=== PATIENT | female | born 1940 | race Caucasian/White ===

== ENCOUNTER 2018-11-25 20:35 | Observation (INO) ==
[2018-11-25] MEDS ORDERED: Acetaminophen 325 MG TABLET PO ONE (21:29)
[2018-11-25] MEDS ORDERED: Aspirin 325 MG TABLET PO ONE (21:29)
[2018-11-25 21:32] LABS: Basophils % 0.3 %; Eosinophils # 0.6 K/mcL (0.0-0.6); Eosinophils % 6.9 %; Hematocrit 38.4 % (35.3-44.9); Hemoglobin 12.4 g/dL (11.5-15.4); Immature Granulocytes % 0.2 % (0-4); Lymphocytes # 2.7 K/mcL (0.6-4.6); Lymphocytes % 31.1 %; Mean Corpuscular HGB Conc 32.3 g/dL (31.6-35.5); Mean Corpuscular Volume 89.9 fL (83.0-100.0); Mean Platelet Volume 10.3 fL (9.4-12.4); Monocytes # 0.9 K/mcL (0.0-1.3); Monocytes % 10.2 %; Neutrophils # 4.4 K/mcL (1.6-8.9); Platelet Count 405 K/mcL (140-400); Red Blood Count 4.27 M/mcL (3.82-4.97); Red Cell Distribution Width 12.8 % (11.5-14.5); Segmented Neutrophils % 51.3 %; White Blood Count 8.6 K/mcL (4.3-11.1)
[2018-11-25 21:54] LABS: BUN/Creatinine Ratio 23 (6-26); Blood Urea Nitrogen 23 mg/dL (8-23); Calcium 9.8 mg/dL (8.6-10.3); Carbon Dioxide 31 mEq/L (23-29); Chloride 101 mEq/L (98-107); Glucose 135 mg/dL (70-105); Osmolality,Calculated 300 (280-300); Potassium 3.2 mEq/L (3.5-5.1); Sodium 142 mEq/L (136-145); Troponin I < 0.03 ng/mL (< 0.04); eGFR For African Americans > 60 (> 60); eGFR For Non-African Americans 53 (> 60)
--- NOTE | 2018-11-25 21:56 | Emergency Department Note ---
Disposition Clinical Impression: Chest pain Qualifiers: Chest pain type: unspecified Qualified Code(s): R07.9 - Chest pain, unspecified Disposition: Admitted As Inpatient Referrals: Catarina Dan MD [Primary Care Provider] - Forms: ED Satisfaction Letter Time of Disposition: 22:30 Chest Pain HPI - General Chief Complaint: ED Chest Pain Stated Complaint: CP Time Seen by Provider: 11/25/18 20:55 Source: patient Mode of arrival: ambulatory Limitations: no limitations Vital Signs Reviewed: Yes Nursing Notes Reviewed: Yes - History of Present Illness HPI Narrative: 78F with PMHx of HTN presents emergency department with a chief complaint of left-sided chest pain. Patient states that she began having sharp intermittent chest pains right below her left breast that have been slowly worsening today. Patient has never had any heart problems before but recently changed her hypertension medications as she may be developing "kidney failure and heart failure" per her primary care doctor. She states that it is causing her to catch her breath but she does not feel short of breath with this. Of note other past medical history is a swollen right lower extremity that she has already had an ultrasound and blood tests that showed no blood clot in her leg and she will be having further imaging of the leg done. She denies recent fevers, headache, cough, abdominal pain, nausea and vomiting, diarrhea. The pain has not been very severe for very long but she states that as a gets worse it is now a 7 out of 10 when it comes. The pain only lasts for a few seconds and then goes away. It does not radiate anywhere. Severity scale (1-10): 10 - Related Data Allergies Allergy/AdvReac Type Severity Reaction Status Date / Time Sulfa (Sulfonamide Allergy Rash Verified 08/21/18 13:24 Antibiotics) potassium AdvReac Vomiting Verified 08/21/18 13:24 All systems ED: reviewed and negative except as stated. Review of Systems: As Per HPI Constitutional: Denies: fever, weakness Cardiovascular: Reports: chest pain. Denies: palpitations, dyspnea on exertion, edema Respiratory: Denies: cough, dyspnea, wheezes Gastrointestinal: Denies: abdominal pain, nausea, vomiting Genitourinary: Denies: dysuria, hematuria Musculoskeletal: Denies: back pain, neck pain Integumentary: Denies: rash Endocrine: Denies: fatigue Chest Pain PMH - Past Medical History Medical history: Reports: hypertension Surgical history: Reports: other, hysterectomy, appendectomy Psychiatric history: Reports: no psych history CHIEF FUNDRAISING OFFICER history: Reports: no CHIEF FUNDRAISING OFFICER history - Social History Smoking Status: Never smoker Alcohol use: Reports: none Drug use: Reports: none Physical Exam - General Limitations: no limitations General appearance: alert, in no apparent distress - Head Head exam: atraumatic, normocephalic - Eye Eye exam: Present: normal appearance, PERRL, EOMI - ENT ENT exam: normal exam - Neck Neck exam: Present: normal inspection. Absent: tenderness - Chest Chest inspection: Present: tenderness - Respiratory Respiratory exam: Present: normal lung sounds bilaterally. Absent: wheezes - Cardiovascular Cardiovascular exam: Present: regular rate, normal rhythm - Abdominal Exam Abdominal exam: Present: soft, Non-Tender. Absent: distention, guarding, rebo und, rigidity - Extremities Exam Extremities exam: Present: tenderness, calf tenderness (RLE swelling). Absent: pedal edema - Neurological Exam Neurological exam: Present: alert, oriented X3 - Psychiatric Psychiatric exam: Present: normal affect, normal mood - Skin Skin exam: Present: warm, dry, intact Course Vital Signs Temperature 98.5 F 11/25/18 20:50 Pulse Rate 78 11/25/18 20:50 Respiratory Rate 20 11/25/18 20:50 Blood Pressure 184/93 11/25/18 20:50 O2 Sat by Pulse Oximetry 99 11/25/18 20:50 Temperature 98.5 F 11/25/18 20:50 Pulse Rate 82 11/25/18 22:00 Respiratory Rate 18 11/25/18 22:00 Blood Pressure 184/90 11/25/18 22:00 O2 Sat by Pulse Oximetry 97 11/25/18 22:00 Oxygen Delivery Oxygen Delivery Room Air Chest Pain - MDM Narrative Medical decision making narrative: Patient presents with pinpoint, very atypical chest pain for ACS, with no significant risk factors. Heart score is 5 prior to troponin. We will do an ACS rule out via EKG, lab work, chest x-ray and treat the patient's pain with aspirin and Tylenol she takes Tylenol for pain at home. Since patient has had negative outpatient tests for DVT, is not hypoxic, tachycardic, and does not seem like a reliable history for pulmonary embolus therefore we will not obtain further testing for PE at this time. 5 - Pts EKG, CXR and labwork are wnl. She is still experiencing chest pain. As she has never had a significant cardiac workup we will admit to hospitalist for chest pain rule out. 0 - pt has been accepted by the hospitalist at this time. - Medical Records Medical records reviewed: Yes I reviewed the patient's medical records. - Lab Data Lab results reviewed: Yes I reviewed the patient's lab results. Result diagrams: 11/25/18 21:05 11/25/18 21:05 Lab Results 11/25/18 11/25/18 Range/Units 21:05 21:05 WBC 8.6 (4.3-11.1) K/mcL RBC 4.27 (3.82-4.97) M/mcL Hgb 12.4 (11.5-15.4) g/dL Hct 38.4 (35.3-44.9) % MCV 89.9 (83.0-100.0) fL MCH 29.0 (28.0-33.3) pg MCHC 32.3 (31.6-35.5) g/dL RDW 12.8 (11.5-14.5) % Plt Count 405 H (140-400) K/mcL MPV 10.3 (9.4-12.4) fL Immature Gran % 0.2 (0-4) % Seg Neutrophils % 51.3 % Lymphocytes % 31.1 % Monocytes % 10.2 % Eosinophils % 6.9 % Basophils % 0.3 % Neutrophils # 4.4 (1.6-8.9) K/mcL Lymphocytes # 2.7 (0.6-4.6) K/mcL Monocytes # 0.9 (0.0-1.3) K/mcL Eosinophils # 0.6 (0.0-0.6) K/mcL Basophils # 0.0 (0.0-0.2) K/mcL Sodium 142 (136-145) mEq/L Potassium 3.2 L (3.5-5.1) mEq/L Chloride 101 (98-107) mEq/L Carbon Dioxide 31 H (23-29) mEq/L BUN 23 (8-23) mg/dL Creatinine 1.01 (0.60-1.20) mg/dL Est GFR ( Amer) > 60 (> 60) Est GFR (Non-Af Amer) 53 L (> 60) BUN/Creatinine Ratio 23 (6-26) Glucose 135 H (70-105) mg/dL Calculated Osmolality 300 (280-300) Calcium 9.8 (8.6-10.3) mg/dL Troponin I < 0.03 (< 0.04) ng/mL - Radiology Data Radiology results reviewed: Yes I reviewed the patient's radiology results. - EKG Data EKG attestation: Yes I reviewed and interpreted this EKG. EKG results narrative: EKG obtained at 20:43 on 11/25/2018 Heart rate 78 bpm, MI interval 194, QRS duration 80, QT 372, QTC 406 Sinus rhythm with left ventricular hypertrophy. No signs of ST segment elevations or depressions. No other acute T-wave abnormalities. Unchanged when compared to previous EKG from 2009. Repeat EKG obtained at 21:58 on 11/25/2018 shows sinus rhythm without any significant changes in the intervals. No ST segment elevations or depressions noted here. No significant changes compared to previous EKG. Heart Score - Score History: Moderately Suspicious EKG: Non Specific repolarisation Disturbance Age: Greater than 65 Risk Factors: 1-2 risk factors Troponin: Less than normal limit HEART Score Total: 5
[2018-11-25] MEDS ORDERED: Potassium Chloride Elixir 20 MEQ/15 ML UDC PO ONE (21:59)
--- NOTE | 2018-11-25 22:23 | Emergency Department Note ---
Disposition Clinical Impression: Chest pain Qualifiers: Chest pain type: chest pain on breathing Qualified Code(s): R07.1 - Chest pain on breathing Disposition: Admitted As Inpatient Condition: Good Time of Disposition: 22:30 General Adult HPI - General Chief complaint: ED Chest Pain Stated complaint: CP Time Seen by Provider: 11/25/18 20:55 Source: patient Mode of arrival: ambulatory Limitations: no limitations - History of Present Illness Pain Scale: 10 - Related Data Previous Rx's Medication Instructions Recorded Aspirin Enteric Coated [Aspirin EC] 81 mg PO DAILY #30 tablet.dr 11/26/18 Nitroglycerin 0.4 mg SL Q5MPRN PRN #15 tab.subl 11/26/18 Omeprazole [PriLOSEC] 20 mg PO DAILY #30 cap 11/26/18 Allergies Allergy/AdvReac Type Severity Reaction Status Date / Time Sulfa (Sulfonamide Allergy Rash Verified 08/21/18 13:24 Antibiotics) potassium AdvReac Vomiting Verified 08/21/18 13:24 Constitutional: Denies: fever, weakness Cardiovascular: Reports: chest pain. Denies: palpitations, dyspnea on exertion, edema Respiratory: Denies: cough, dyspnea, wheezes Gastrointestinal: Denies: abdominal pain, nausea, vomiting Genitourinary: Denies: dysuria, hematuria Musculoskeletal: Denies: back pain, neck pain Integumentary: Denies: rash Endocrine: Denies: fatigue Past Medical History - Past Medical History Medical history: Reports: hypertension Surgical history: Reports: other, hysterectomy, appendectomy Psychiatric history: Reports: no psych history SPECIAL AGENT history: Reports: no SPECIAL AGENT history - Social History Smoking Status: Never smoker Smokeless Tobacco Status: No Alcohol use: Reports: none Drug use: Reports: none Physical Exam - General Limitations: no limitations General appearance: alert, in no apparent distress Course Vital Signs Temperature 98.5 F 11/25/18 20:50 Pulse Rate 78 11/25/18 20:50 Respiratory Rate 20 11/25/18 20:50 Blood Pressure 184/93 11/25/18 20:50 O2 Sat by Pulse Oximetry 99 11/25/18 20:50 Temperature 97.8 F 11/26/18 06:58 Pulse Rate 62 11/26/18 06:58 Respiratory Rate 16 11/26/18 06:58 Blood Pressure 122/74 07/31/19 06:58 O2 Sat by Pulse Oximetry 96 11/26/18 06:58 Oxygen Delivery Oxygen Delivery Room Air Medical Decision Making - Lab Data Result diagrams: 11/26/18 03:16 11/26/18 03:16 Lab Results 11/25/18 11/25/18 Range/Units 21:05 21:05 WBC 8.6 (4.3-11.1) K/mcL RBC 4.27 (3.82-4.97) M/mcL Hgb 12.4 (11.5-15.4) g/dL Hct 38.4 (35.3-44.9) % MCV 89.9 (83.0-100.0) fL MCH 29.0 (28.0-33.3) pg MCHC 32.3 (31.6-35.5) g/dL RDW 12.8 (11.5-14.5) % Plt Count 405 H (140-400) K/mcL MPV 10.3 (9.4-12.4) fL Immature Gran % 0.2 (0-4) % Seg Neutrophils % 51.3 % Lymphocytes % 31.1 % Monocytes % 10.2 % Eosinophils % 6.9 % Basophils % 0.3 % Neutrophils # 4.4 (1.6-8.9) K/mcL Lymphocytes # 2.7 (0.6-4.6) K/mcL Monocytes # 0.9 (0.0-1.3) K/mcL Eosinophils # 0.6 (0.0-0.6) K/mcL Basophils # 0.0 (0.0-0.2) K/mcL Sodium 142 (136-145) mEq/L Potassium 3.2 L (3.5-5.1) mEq/L Chloride 101 (98-107) mEq/L Carbon Dioxide 31 H (23-29) mEq/L BUN 23 (8-23) mg/dL Creatinine 1.01 (0.60-1.20) mg/dL Est GFR ( Amer) > 60 (> 60) Est GFR (Non-Af Amer) 53 L (> 60) BUN/Creatinine Ratio 23 (6-26) Glucose 135 H (70-105) mg/dL Calculated Osmolality 300 (280-300) Calcium 9.8 (8.6-10.3) mg/dL Troponin I < 0.03 (< 0.04) ng/mL Attestation Statement - Attestation Attestation: I examined this patient and my medical decision-making was reviewed with the Resident Physician. I agree with the documented findings, disposition and treatment plan as described except to the extent set forth below. Patient 78-year-old male presents to emergency department with chief complaint of chest pain. Patient states throughout the day been having sharp left-sided chest pain but also reports been having indigestion for the last several days. Patient reports that today it was bad enough that made her have to come to the emergency department. Physical exam patient is awake alert and having some mild pain distress in the room. ( Medical decision management patient underwent laboratory studies and EKG that showed no significant acute ischemic changes. Given the patient's risk factors and The patient should be admitted for observation case will be discussed with the hospitalist I personally supervised and was present for the ludwig/critical portions of the following procedures completed by the resident:EKG.
[2018-11-25] MEDS ORDERED: *HR* Metoprolol 5 MG/5 ML VIAL IVP ONE (22:29)
[2018-11-25] MEDS ORDERED: Ketorolac 15 MG/ML VIAL IVP ONE (22:50)
[2018-11-26] MEDS ORDERED: Nitroglycerin 0.4 MG TAB.SUBL SL PRN (01:20)
[2018-11-26] MEDS ORDERED: Morphine Sulfate 2 MG/ML SYRINGE IVP PRN (01:20)
[2018-11-26] MEDS ORDERED: traMADol 50 MG TABLET PO PRN (01:24)
[2018-11-26] MEDS ORDERED: Ondansetron 4 MG/2 ML VIAL IVP PRN (01:24)
[2018-11-26] MEDS ORDERED: Naloxone 0.4 MG/ML INJ IVP PRN (01:24)
[2018-11-26] MEDS ORDERED: Acetaminophen 325 MG TABLET PO PRN (01:24)
[2018-11-26] MEDS ORDERED: Potassium Chloride Elixir 20 MEQ/15 ML UDC PO ONE (01:27)
--- NOTE | 2018-11-26 01:40 | Internal Med History&Physical ---
Date of Encounter: 11/26/18 Time of Encounter: 00:45 Internal Medicine - H&P: HPI Chief complaint: CP/SOB Admitted From: Emergency Dept Plans for Post Hospital Care: Home History of present illness: Ms. Fernandez is a 78 year old female w/PMH of HTN and hx of gastric ulcers presents from the ED w/CC of CP accompanied by SOB that began today. Patient reports she recently saw her PCP who started her on a new HTN medication (pt. has had only two doses) d/t her renal dysfunction. Pt also reports UTI and RLE swelling and pain when she went to see her PCP. Patient states that she was driving in her car to go to the store today when she began having sharp/stabbing pains in her left breast w/feeling of not being able to catch her breath. Denies radiation, nausea, vomiting, diaphoresis. Aggravating factors: taking deep breaths. Alleviating factors: rest. Patient denies previous occurrence. States that the CP and SOB became more frequent and intense as the day progressed. When not having the sharp pain, pt. reports dull aching in chest. RLE still edematous. PCP did US and did not find DVT. Patient denies recent illness, fever, chills, nausea, vomiting, headache, changes in vision, cough, chest congestion, unusual bleeding, abdominal pain, diarrhea, constipation, numbness, tingling, dizziness, lightheadedness, pre-syncope, or syncope. Past Med Surg Social Fam HX - Past Medical History Source: patient, old records reviewed Medical history: hypertension Additional medical history: uterine cancer Psychiatric history: no psych history - Past Surgical History Surgical History: appendectomy, cholecystectomy, hysterectomy Additional surgical history: heart cath with no stents ("in the 80s"), "tummy tuck" - Social History Smoking Status: Never smoker Smokeless Tobacco Status: No Alcohol use: occasionally Drug use: none Occupational status: employed Current living situation: Home, With Family Activity Level: Independent ambulation, Very active Recent Out of Country Travel Within the Last 8 Weeks: No Exposure or Possible Exposure to Illness During Travel: No - Family History Father Race: Family Member Ethnicity: Non- Living Status: Age at : 88 Cause of : Prostate Cancer Hx Family Cardiac Disorders: Yes (Angina) Hx Family Cancer: Yes (Skin, Prostate) Mother Race: Family Member Ethnicity: Non- Living Status: Age at : 96 Cause of : Pneumonia Hx Family Cardiac Disorders: Yes (RI x2 when in her 50s) Hx Family Cancer: Yes (Unknown) Brother Race: Family Member Ethnicity: Non- Living Status: Age at : 68 Cause of : CHF Hx Family Cardiac Disorders: Yes (CHF) Hx Family Endocrine Disorder: Yes (DM) Sister Race: Family Member Ethnicity: Non- Living Status: Age at : 69 Cause of : Sepsis Hx Family Cardiac Disorders: Yes (Stents in legs) Internal Medicine - H&P: Meds Allergy/AdvReac Type Severity Reaction Status Date / Time Sulfa (Sulfonamide Allergy Rash Verified 08/21/18 13:24 Antibiotics) potassium AdvReac Vomiting Verified 08/21/18 13:24 All Systems PM: A 10-system review of systems was performed and is negative for pertinent findings except as documented above in the HPI. - Constitutional Constitutional: no chills, no fever(s), no night sweats - EENT Eyes: as per HPI, no change in vision, no discharge, no pain, no photophobia Ears: no ear discharge, no ear pain, no tinnitus Nose, mouth and throat: no dysphagia, no nasal discharge, no neck pain, no sore throat - Breasts Breasts: as per HPI - Cardiovascular Cardiovascular ROS IM: as per HPI, chest pain, dyspnea, dyspnea on exertion, edema (RLE), no diaphoresis, no lightheadedness, no palpitations, no syncope - Respiratory Respiratory: as per HPI, dyspnea, dyspnea on exertion, pain on inspiration, no cough, no wheezing, no excessive phlegm production - Gastrointestinal Gastrointestinal: no abdominal pain, no diarrhea, no hematemesis, no hematochez ia, no melena, no nausea, no vomiting - Genitourinary Genitourinary: no change in urinary stream, no dysuria, no flank pain, no hematuria Menstruation: as per HPI, post hysterectomy - Musculoskeletal Musculoskeletal ROS IM: no numbness, no tingling - Integumentary Integumentary IM: no rash, no unusual bruising - Neurological Neurological ROS: no confusion, no convulsions, no focal weakness, no numbness, no tingling, no tremor(s) - Psychiatric Psychiatric: as per HPI - Endocrine Endocrine IM: as per HPI - Hematologic/Lymphatic Hematologic/Lymphatic: no easy bruising - Allergic/Immunologic Allergic/Immunologic: as per HPI - Constitutional Vitals: Temp Pulse Resp BP Pulse Ox 97.8 F 63 14 168/82 97 11/26/18 00:54 11/26/18 00:54 11/26/18 00:54 11/26/18 00:54 11/26/18 00:54 General appearance: Present: cooperative, mild distress (CP returns w/deep breathing or laying flat), A&O X 3, pleasant, underweight, answers questions appropriately Exam: Patient examined at bedside. Reports increasing CP when laying down. Also reports SOB w/CP sx. Denies any other complaints or sx during exam. VS: 97.8F temp, HR 63, RR 14, BP 168/82, SPO2 97% on room air. - Head Head exam: Present: atraumatic, normocephalic - Eye Eye exam: Present: PERRL, conjuntiva pink, sclera anicteric Pupils: Present: PERRL - ENT ENT exam: Present: normal exam - Neck Neck exam general surgery: Present: normal inspection, supple, trachea midline. Absent: lymphadenopathy - Respiratory Respiratory exam: Present: CTAB. Absent: accessory muscle use, rales, rhonchi, wheezes - Cardiovascular Cardiovascular exam: Present: RRR, +S1, +S2. Absent: diastolic murmur, gallop, rubs, systolic murmur - GI/Abdominal GI/Abdominal exam: Present: normal bowel sounds, soft, no peritoneal signs. Absent: distended, tenderness - Rectal Rectal exam: Present: deferred - Additional comments: exam deferred. - Extremities Exam Extremities exam: Present: tenderness (RLE), warm, radial pulses palpable and symmetrical. Absent: calf tenderness, cyanotic, pedal edema - Back Exam Back exam: Present: normal inspection - Neurological Exam Neurological exam: Present: alert, CN II-XII intact, oriented X3, no focal deficits. Absent: pronater drift, facial droop, speech deficit - Psychiatric Psychiatric exam: Present: normal affect, normal mood - Skin Skin exam: Present: dry, intact Internal Med - H&P Results - Labs CBC & Chem 7: 11/25/18 21:05 11/25/18 21:05 Labs: Short CBC 07/30/19 Range/Units 21:05 WBC 8.6 (4.3-11.1) K/mcL Hgb 12.4 (11.5-15.4) g/dL Hct 38.4 (35.3-44.9) % Plt Count 405 H (140-400) K/mcL Neutrophils # 4.4 (1.6-8.9) K/mcL BMP 11/25/18 21:05 Sodium 142 Potassium 3.2 L Chloride 101 Carbon Dioxide 31 H BUN 23 Creatinine 1.01 Glucose 135 H Calcium 9.8 Cardiac Enzymes 11/25/18 Range/Units 21:05 Troponin I < 0.03 (< 0.04) ng/mL - EKG Data EKG shows normal: sinus rhythm - EKG Data Prior EKG available for review: yes EKG comments: 11/26/18 01:56 EKG dated 11/25/18 21:58 show sinus rhythm with abnormal R-wave progression in early transition and minimal ST depression in inferior leads. EKG dated 11/26/18 01:17 shows sinus rhythm with first-degree AV block. - Impressions ITS Impressions Chest X-Ray 11/25/18 20:55 IMPRESSION: No radiographic evidence of acute cardiopulmonary process. D/ / Israel Cunningham MD / Israel Cunningham MD Interpreting Provider: Israel Cunningham MD Pulmonary Perfusion Imaging 11/25/18 23:35 IMPRESSION: Low probability for pulmonary embolus. D/ / Sarthak Bravo / Sarthak Bravo Interpreting Provider: Sarthak Bravo - Diagnostic Studies Chest x-ray Additional comments: Impressions Chest X-Ray 11/25/18 20:55 IMPRESSION: No radiographic evidence of acute cardiopulmonary process. D/ / Israel Cunningham MD / Israel Cunningham MD Interpreting Provider: Israel Cunningham MD Other Images Additional comments: Impressions Pulmonary Perfusion Imaging 11/25/18 23:35 IMPRESSION: Low probability for pulmonary embolus. D/ / aSrthak Bravo / Sarthak Bravo Interpreting Provider: Sarthak Bravo - Assessment and Plan (1) Chest pain Current Visit: Yes Status: Acute Assessment and plan: Acute CP that began while she was driving in her car to go to the store today. Describes chest discomfort as sharp/stabbing pains in her left breast w/feeling of not being able to catch her breath. Denies radiation, nausea, vomiting, diaphoresis. Aggravating factors: taking deep breaths. Alleviating factors: rest. Patient denies previous occurrence. States that the CP and SOB became more frequent and intense as the day progressed. When not having the sharp pain, pt. reports dull aching in chest. No recent cardiac w/u. Initial troponin <0.03. Trending. ASA in ED. Pt. has hx of gastric ulcers so will use ASA at lowest dose daily. 80 mg Lipitor once. SL nitro PRN. 2 mg IVP morphine Q4HR for CP. CXR shows no radiographic evidence of acute cardiopulmonary process. Echocardiogram. NPO now for nuclear pharm stress test later today if troponins remain WNL. Consider Cardiology consult if troponins, Echocardiogram, and/or stress test results abnormal. Pt. is high risk for cardiac event and further morbidity d/t current unstable angina, worsening presentation of pain and symptoms, acute SOB w/CP, familial hx of cardiac disease (mother had MIs x2 while in her 50s, and brother of CHF). Other risk factors: HTN. Observation. Qualifiers: Chest pain type: chest pain on breathing Qualified Code(s): R07.1 - Chest pain on breathing; R07.81 - Pleurodynia (2) SOB (shortness of breath) Current Visit: Yes Status: Acute Assessment and plan: Acute SOB accompanying CP sx. Pt. states pain is worse w/deep inspiration. Denies hx of CHF or COPD, cough, chest congestion, home O2 use, or recent illness. Concern for possible PE d/t tandem CP which worsens w/deep inspiration. D/t pts. renal dysfunction, VQ scan ordered to r/o PE which showed a low proba bility for pulmonary embolus. Supplemental O2 with titration. (3) Hypokalemia Current Visit: Yes Status: Acute Assessment and plan: Acute hypokalemia w/potassium of 3.2 on admission. Pt. received 40 mEq of potassium elixir in ED. Will give another 40 mEq of elixir and check a.m. labs for improvement. Cardiac monitoring. (4) Edema of right lower extremity Current Visit: Yes Status: Acute Assessment and plan: Acute edema of the RLE, primarily in knee. Pt. reports previous swelling in calf and had US done at PCPs which was negative for DVT. XR 3V of right knee ordered. Stair-step pain medication for pain mgmt. (5) HTN (hypertension) Current Visit: Yes Status: Chronic Assessment and plan: Hx of chronic HTN. Patient was recently switched to new HTN medication by PCP. Has only has two doses. Will continue once reconciled. 10 mg IVP hydralazine Q6HR w/parameters ordered. Monitor pt. and VS. Qualifiers: Hypertension type: essential hypertension Qualified Code(s): I10 - Essential (primary) hypertension (6) CKD (chronic kidney disease) stage 3, GFR 30-59 ml/min Current Visit: Yes Status: Chronic Assessment and plan: Hx of CKD. Currently stage III w/GFR of 53 and creatinine of 1.01. Will use IV fluids judiciously if warranted and avoid nephrotoxins. Monitor f/u labs for changes. (7) Hx of gastric ulcer Current Visit: Yes Status: Resolved Assessment and plan: Hx of gastric ulcer in the past. Pt. reports stomach upset on exam. 40 mg famoti dine by mouth twice a day before meals. (8) DVT prophylaxis Current Visit: Yes Status: Acute Assessment and plan: Heparin 5,000 units SQ Q8HR for DVT prophylaxis. Monitor pt. for signs of bleeding. - Time Spent With Patient Total time spent is greater than 50% in coordination of care (as documented) at patient's floor/unit and/or counseling patient: Greater than 35 minutes
[2018-11-26] MEDS ORDERED: Famotidine 20 MG TABLET PO SCH (02:00)
[2018-11-26] MEDS ORDERED: GI Cocktail 40 ML EACH PO ONE (02:33)
[2018-11-26 03:35] LABS: Hematocrit 36.5 % (35.3-44.9); Hemoglobin 11.9 g/dL (11.5-15.4); Mean Corpuscular HGB Conc 32.6 g/dL (31.6-35.5); Mean Corpuscular Hemoglobin 29.8 pg (28.0-33.3); Mean Corpuscular Volume 91.5 fL (83.0-100.0); Mean Platelet Volume 10.1 fL (9.4-12.4); Platelet Count 360 K/mcL (140-400); Red Blood Count 3.99 M/mcL (3.82-4.97); Red Cell Distribution Width 12.8 % (11.5-14.5); White Blood Count 9.7 K/mcL (4.3-11.1)
[2018-11-26 04:23] LABS: Calcium 9.4 mg/dL (8.6-10.3); Chol/HDL Ratio 2.6 (0-4.9); Magnesium 2.1 mg/dL (1.6-2.6); Potassium 5.1 mEq/L (3.5-5.1); Thyroid Stimulating Hormone 2.038 mcIU/mL (0.340-5.600)
[2018-11-26] MEDS ORDERED: *HR* Heparin 5,000 UNIT/ML VIAL SQ SCH (06:00)
[2018-11-26] MEDS ORDERED: Regadenoson 0.4 MG/5 ML SYRINGE IVP ONE (06:08)
[2018-11-26 06:59] VITALS: BP 122/74
[2018-11-26] MEDS ORDERED: Aspirin Enteric Coated 81 MG Tablet PO SCH (09:00)
[2018-11-26 10:21] LABS: Estimated Average Glucose 114 mg/dl
--- NOTE | 2018-11-26 11:09 | Discharge Summary ---
- NOTES TO OUTPATIENT PROVIDER Notes to Outpatient Provider: f/u with PCP in 3-5 days.. You do need stress test as an out pt.. Please talk to your PCP to schedule for stress test. Start taking Aspirin 81mg PO Daily. Date of Encounter: 11/26/18 Time of Encounter: 11:02 - Discharge Diagnosis (1) Chest pain Priority: Primary Status: Acute Qualifiers: Chest pain type: chest pain on breathing Qualified Code(s): R07.1 - Chest pain on breathing; R07.81 - Pleurodynia (2) HTN (hypertension) Priority: Secondary Status: Chronic Qualifiers: Hypertension type: essential hypertension Qualified Code(s): I10 - Essential (primary) hypertension (3) SOB (shortness of breath) Priority: Secondary Status: Acute (4) DVT prophylaxis Priority: Secondary Status: Acute (5) Hypokalemia Priority: Secondary Status: Acute (6) CKD (chronic kidney disease) stage 3, GFR 30-59 ml/min Priority: Secondary Status: Chronic (7) Edema of right lower extremity Priority: Secondary Status: Acute (8) Hx of gastric ulcer Priority: Secondary Status: Resolved Hospital course: Ms. Fernandez is a 78 year old female with known PMH of HTN and hx of gastric ulcers presents from the ED w/CC of CP accompanied by SOB that began today. Patient stated that she was driving in her car to go to the store when she began having sharp/stabbing pains in her left breast w/feeling of not being able to catch her breath. For Rt leg edema, PCP did US and did not find DVT. She did have VQ scan in the ER which came back as low probability for PE. Pt was admitted in the hospital and placed her on tele. Her serial troponin were negative and no acute ischemic changes noticed on EKG. We were not able to do nuclear stress test today since she just had V Q scan. Pt denied any active CP now. I did recommend the pt to f/u with PCP for possible out pt stress test, also asked the pt to come back to ER if she gets CP again. - Time Spent with Patient Total time spent providing and/or coordinating discharge services: - Discharge Medications Prescriptions: New Aspirin Enteric Coated [Aspirin EC] 81 mg PO DAILY #30 tablet. Nitroglycerin 0.4 mg SL Q5MPRN PRN #15 tab.subl PRN Reason: Chest Pain Omeprazole [PriLOSEC] 20 mg PO DAILY #30 cap Home Medications: Aspirin Enteric Coated [Aspirin EC] 81 mg PO DAILY #30 tablet. 11/26/18 [Rx] Nitroglycerin 0.4 mg SL Q5MPRN PRN #15 tab.subl 11/26/18 [Rx] Omeprazole [PriLOSEC] 20 mg PO DAILY #30 cap 11/26/18 [Rx] Allergies/Adverse Reactions: Allergy/AdvReac Type Severity Reaction Status Date / Time Sulfa (Sulfonamide Allergy Rash Verified 08/21/18 13:24 Antibiotics) potassium AdvReac Vomiting Verified 08/21/18 13:24 Date of admission: 11/25/18 22:51 Primary care physician: Catarina Dan Consults: 11/26/18 02:02 Consult to Nutrition [CONS] Routine Comment: Consulting Provider: NUTRITION Reason for Dietary Consult: PO Supplementation - Constitutional Vitals: Temp Pulse Resp BP Pulse Ox 97.8 F 62 16 122/74 96 11/26/18 06:58 11/26/18 06:58 11/26/18 06:58 11/26/18 06:58 11/26/18 06:58 General appearance: Present: cooperative, A&O X 3, pleasant, underweight, answers questions appropriately Exam: Gen: Alert, awake, Oriented to time,place and person Chest: Diminished breath sounds B/L, No wheezing, No crackles, No rales Heart: S1S2+ RRR No murmurs Abd: Soft, NT, BS +, No organomegaly Ext: No edema, pulses are palpable, No calf tenderness Neuro : No acute focal neuro deficits noticed Skin: No rash. - Patient Status Disposition: Home, Self-Care Condition: Good Overall status at discharge: patient is back to baseline - Discharge Instructions Follow Up With: Catarina Dan MD [Primary Care Provider] - - Diet and Activity Activity: increase activity as tolerated Diet: low salt diet
--- NOTE | 2018-11-27 14:58 | Electrocardiograph Report ---
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
--- NOTE | 2018-11-27 15:00 | Electrocardiograph Report ---
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
--- NOTE | 2018-11-27 15:09 | Electrocardiograph Report ---
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
== END 2018-11-26 11:58 | disposition home or self-care (01) ==
LOC: EMEROOARM 20:35 → 3BNU 20:35
PROVIDERS: ADMIT Internal Medicine; ATTEND Internal Medicine